=== PATIENT | male | born 1960 | race Caucasian/White ===

== ENCOUNTER 2018-04-14 09:06 | Emergency (ER) | payer OTHER ==
[~2018-04-14] VITALS: Ht 172.7 cm; Wt 99.8 kg
[2018-04-14] MEDS ORDERED: LIDOCAINE 2% 20 ML (XYLOCAINE) VIAL INJ STA (09:14)
--- NOTE | 2018-04-14 09:47 | Diagnostic Imaging Report ---
INDICATION: Nail gun injury to the right hand. Time of exam 9:52 AM A nail foreign body extends through the right second finger distally. The nail appears to be separate from the distal phalanx. No definite bony involvement is seen. No fracture is identified. Phalanges are intact. IMPRESSION: Nail foreign body within the soft tissues of the distal right second finger. No definite osseous involvement is seen. No fracture is identified. Dictated by: Dictated on workstation # [id number]
--- NOTE | 2018-04-14 10:23 | ED Upper Extremity ---
General Chief Complaint: Foreign Body Stated Complaint: NAIL THROUGH RIGHT INDEX FINGER Nursing Triage Note: PT TO ROOM 10 PER AMBULATION, PT FROM WORK, HAS CONSTRUCTION NAIL FROM NAIL GUN THRU INDEX FINGER R HAND. Nursing Sepsis Screen: No Definite Risk Source: patient Exam Limitations: no limitations History of Present Illness Date Seen by Provider: Apr 14, 2018 Time Seen by Provider: 09:10 Initial Comments Here with report of nail through index finger on right hand. 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 when he was falling backwards on a ladder. He caught himself but in the process of that he accidentally discharged a nail through his index finger. Arrives with nail in place. Denies other injury. Tetanus is up-to-date. Onset: just prior to arrival (approximately 30 minutes ago) Pain/Injury Location: right 2nd finger Method of Injury: other (foreign body nail) Modifying Factors: Improves With Immobilization; Worse With Movement Allergies and Home Medications Allergies Coded Allergies: Penicillins (Verified Allergy, Unknown, 04/14/18) Patient Home Medication List Home Medication List Reviewed: Yes Constitutional: see HPI; No chills, No fever Respiratory: no symptoms reported Cardiovascular: no symptoms reported Musculoskeletal: see HPI, muscle pain, muscle stiffness Skin: see HPI, lesions Psychiatric/Neurological: Denies Numbness, Denies Weakness Past Gehumpk-Jbrkrh-Mhqjns Hx Past Med/Social Hx: Reviewed Nursing Past Med/Soc Hx Patient Social History Alcohol Use: Denies Use Recreational Drug Use: No Smoking Status: Never a Smoker Recent Foreign Travel: No Contact w/Someone Who Travel: No Recent Infectious Disease Expo: No Recent Hopitalizations: No Physical Abuse: No Sexual Abuse: No Past Medical History Surgeries: No Respiratory: No Cardiac: Yes Heart Attack, Hypertension Nursing Suicide Risk Score: 0 Integumentary: No Family Medical History Reviewed Nursing Family Hx Physical Exam Vital Signs Vital Signs - First Documented 04/14/18 09:10 Temp 97.1 Pulse 60 Resp 18 B/P (MAP) 146/89 (108) Pulse Ox 98 Capillary Refill : Less Than 3 Seconds General Appearance: WD/WN, no apparent distress Cardiovascular: regular rate, rhythm, no murmur Respiratory: lungs clear, normal breath sounds Hand: Right, limited ROM, soft tissue tenderness (has foreign body nail through the soft tissue of the index finger that enters at the pad on the thumb side and exits just distal to the DIP joint volar aspect.) Neurologic/Psychiatric: alert, oriented x 3 Skin: warm/dry, other (puncture wound as described above) Progress/Results/Core Measures Results/Orders My Orders Orders - RIRI MENDOZA MD Lidocaine 2% Injection 20 Ml (Xylocaine (04/14/18 09:14) Finger(S) (04/14/18 09:14) Vital Signs/I&O 04/14/18 09:10 Temp 97.1 Pulse 60 Resp 18 B/P (MAP) 146/89 (108) Pulse Ox 98 Blood Pressure Mean: 108 Progress Progress Note : Progress Note Seen and evaluated. X-ray right hand. Nail does not appear to have hit any bony area. Digital block performed. Nail removed without difficulty or requiring tools. Wound cleaned copiously. Covered with antibiotic ointment and dressing. Discharged home with return precautions. Patient verbalize understanding instructions and agreement with plan. Diagnostic Imaging Diagonstic Imaging: Xray Plain Films/CT/US/NM/MRI: hand [facility] [place], [place] NAME: RIRI MORENO [facility] REC#: [id number] PT STATUS: REG ER : 1960 PHYSICIAN: RIRI MENDOZA MD ADMIT DATE: 04/14/18/ER Draft Date of Exam:04/14/18 FINGER(S) INDICATION: Nail gun injury to the right hand. Time of exam 9:52 AM A nail foreign body extends through the right second finger distally. The nail appears to be separate from the distal phalanx. No definite bony involvement is seen. No fracture is identified. Phalanges are intact. IMPRESSION: Nail foreign body within the soft tissues of the distal right second finger. No definite osseous involvement is seen. No fracture is identified. Dictated on workstation # [id number] Dict: 04/14/1844 Trans: 04/14/18 0947 [facility] [id number] Interpreted by: NEHA IRIZARRY MD Electronically signed by: Departure Impression Primary Impression: Injury of finger of right hand by nail gun Qualified Codes: S69.91XA - Unspecified injury of right wrist, hand and finger (s), initial encounter; W29.4XXA - Contact with nail gun, initial encounter Disposition: HOME, SELF-CARE Condition: Stable Departure-Patient Inst. Referrals: NO,LOCAL PHYSICIAN (PCP/Family) Primary Care Physician Patient Instructions: Skin Abrasions (DC) Add. Discharge Instructions: All discharge instructions reviewed with patient and/or family. Voiced understanding. Keep dressing in place for 2 days and then he may remove period after removing dressing, use antibiotic ointment and dressing over wound to keep it clean. You may clean or soak wound as needed once or twice daily to keep the wound clean after initial dressing change. Return for worse pain, swelling, redness, red streaks up the hand or other concerns as needed. Take medications as directed. You may use ibuprofen 600 mg every 8 hours as needed for pain. You may also take Tylenol/acetaminophen 1000 mg every 6 hours as needed for pain but do not take with prescribed pain medicine as they both have acetaminophen in them. Scripts Doxycycline Hyclate (Doxycycline Hyclate) 100 Mg Tablet 100 MG PO BID, #14 TAB 0 Refills Prov: RIRI MENDOZA MD 04/14/18 RIRI MENDOZA MD Apr 14, 2018 10:23
[2018-04-14] MEDS ORDERED: DOXY100T2 PO (10:31)
[2018-04-14 10:37] VITALS: BP 146/89
== END 2018-04-14 10:42 | disposition home or self-care (01) ==
LOC: ER 09:09
DX: S60.450A Superficial foreign body of right index finger, initial encounter (principal); I25.2 Old myocardial infarction; I10 Essential (primary) hypertension; Z88.0 Allergy status to penicillin; W29.4XXA Contact with nail gun, initial encounter
CPT/HCPCS: 73140